=== PATIENT | male | born 1950 | race Caucasian/White ===

== ENCOUNTER → 2018-06-04 | Outpatient (CLI) | payer OTHER ==
[~2018-06-04] MED LIST: AMLODIPINE BESY10 MG PO; ASPIR 8181 MG PO; AVALIDE 300-121 EACH PO; BISOPROLOL FUMAR5 MG PO; DOXYCYCLINE 10100 MG PO; FLOMAX0.4 MG PO; GLUCOSAMINE HC500 MG PO; HYDROCODONE-AP1 EAC6 PO; LEVOTHYROXINE0.2 M1 PO; NORCO 5-325 TA1 EACH PO; ONDANSETRON HCL4 M2 PO; VITAMIN D2000 UNIT PO; ZINC CHELATE50 MG PO; ZOCOR20 MG PO; ZOFRAN ODT4 MG PO; [UNRECOGNIZED DRUG - OTHER] PO
== END ==
LOC: ULTRA 13:14
DX: M79.605 Pain in left leg (principal); R60.9 Edema, unspecified; R09.89 Other specified symptoms and signs involving the circulatory and respiratory systems; I73.9 Peripheral vascular disease, unspecified; D68.61 Antiphospholipid syndrome; Z88.0 Allergy status to penicillin; Z88.2 Allergy status to sulfonamides

== ENCOUNTER → 2019-02-09 | Outpatient (CLI) | payer OTHER | LOC: RAD 09:58 | DX: M76.892 Other specified enthesopathies of left lower limb, excluding foot (principal); E78.5 Hyperlipidemia, unspecified; I10 Essential (primary) hypertension; E03.9 Hypothyroidism, unspecified; Z88.0 Allergy status to penicillin; Z88.2 Allergy status to sulfonamides ==